=== PATIENT | male | born 1990 | race Two or more races ===

== ENCOUNTER 2018-08-11 18:53 | Emergency (ER) | payer MEDICAID, OTHER ==
[~2018-08-11] VITALS: Ht 175.3 cm; Wt 74.0 kg
[~2018-08-11 18:53] MED LIST: HYDR-569 PO; HYDR1TAB PO; IBUP-814 PO
[2018-08-11 19:14] VITALS: BP 123/71
== END 2018-08-11 21:00 | disposition left against medical advice (07) ==
LOC: ER 18:54
DX: K04.7 Periapical abscess without sinus (principal); K02.9 Dental caries, unspecified; F12.90 Cannabis use, unspecified, uncomplicated; Z56.0 Unemployment, unspecified; Z59.0 Homelessness
CPT/HCPCS: 99281

== ENCOUNTER 2025-04-01 23:09 | Emergency (ER) | payer MEDICAID ==
[~2025-04-01] VITALS: Ht 175.3 cm; Wt 84.1 kg
[~2025-04-01 23:09] MED LIST changes: +HYDR-4383 PO; -HYDR-569 PO
[2025-04-01 23:10] VITALS: TEMP 97.5
--- NOTE | 2025-04-02 02:33 | Physician Documentation ---
History of Present Illness ~ Chief Complaint: Back Pain Stated Complaint: LOWER BACK PAIN Time Seen by MD: 02:32 [facility]: Ambulatory HPI Patient presents to the emergency room with chronic back pain requesting muscle relaxers. He was mopping a floor four days ago and has experiencing pain since that time. He was requesting imaging and MRIs. No bladder or bowel incontinence reported Medication Reconciliation Allergies: Coded Allergies: No Known Allergies (Unverified , 08/11/18) Scheduled Hydrocodone/Acetaminophen (Vicodin 5-500 Tablet), 1-2 TAB PO Q6H PRN PAIN Ibuprofen (Motrin), 600 MG PO Q6H PRN FOR PAIN Scheduled PRN Hydrocodone/Acetaminophen ([place] 5-325 Tablet), 1 TAB PO TID PRN PRN for pain Past Medical History Past Medical History: Depression Past Surgical History: no surgical history Alcohol Use: Sober Drug Use: marijuana Lives In: Homeless Occupation: unemployed Review of Systems ROS All review of systems negative except as per HPI Physical Exam Physical Exam Vital Signs: Temperature: 97.5, Source: Temporal, Heart Rate: 71, Respiratory Rate: 14, BP: 117/74, Pulse Oximetry: 98, Weight: 84.100 Physical Exam General: Patient is awake, alert, talking on phone sitting comfortably eating a sandwich sitting up on bedside Head: Normocephalic and atraumatic. Eyes: Conjunctival normal. EOMI. PERRL. ENT: Mucous membranes moist. Neck: Supple, trachea is midline. Chest: Clear to auscultation bilaterally without rales, rhonchi, or wheezes. There is no accessory muscle use or retractions. Cardiac: RRR without murmurs, gallops, or rubs. Back: Diffuse bilateral lumbar tenderness to palpation without step-off Progress Results/Orders Results/Orders Vital Signs 04/01/25 23:10 Temp 97.5 Pulse 71 Resp 14 B/P (MAP) 117/74 Pulse Ox 98 Medical Decision Making Findings Patient presents to the emergency room for evaluation of back pain. Differentials include but are not limited to muscle strain kidney stone, radiculopathy, pyelonephritis, cauda equina. Given his history of hurting his back while mopping a floor I do not feel any emergent imaging is necessary as I do not suspect any fractures or neurologic emergencies. Offered ibuprofen and Tylenol for his pain however he was declining as he was states that they do not work. He is residing at [facility] and I will not be providing any addictive medicines for him. Patient was unhappy with plan of care and feels that we should do an MRI. After explaining why we would not be doing an MRI and why I would not be prescribing him addictive medications he asked for my name and started speaking of lawsuits. He then stood up become threatening therefore security was called to escort the patient out of the emergency room. Departure Disposition: 01 HOME / SELF CARE / HOMELESS Impression: Primary Impression: Lumbago Condition: Stable Discharge Instructions: Acute Back Pain, Adult Referrals: NO PRIMARY CARE PROVIDER (PCP) Education Educated: Patient Educated regarding: diagnosis, treatment, need for follow up Signature Scribe Signature: No scribe Attestation: The note accurately reflects work and decisions made by me.Doug Stanley MD 04/02/25 02:38 DOUG STANLEY MD April 02, 2025 02:33
[2025-04-02 03:02] VITALS: BP 122/74; PULSE 80; RESP 16; O2SAT 99
== END 2025-04-02 03:13 | disposition home or self-care (01) ==
LOC: ER 23:09
DX: M54.50 Low back pain, unspecified (principal)
CPT/HCPCS: 99281

== ENCOUNTER 2025-06-08 15:43 | Emergency (ER) | payer MEDICAID ==
[~2025-06-08] VITALS: Ht 172.7 cm; Wt 83.3 kg
[2025-06-08 16:01] VITALS: BP 128/80; PULSE 85; RESP 17; TEMP 98.1; O2SAT 98
[2025-06-08] MEDS ORDERED: AMOX-117 PO (16:24)
--- NOTE | 2025-06-08 16:24 | Physician Documentation ---
History of Present Illness ~ Chief Complaint: Bite-animal Stated Complaint: CAT BIT Time Seen by MD: 16:17 Primary Medical Doctor: [facility] Source: patient Mode of Arrival: POV Exam Limitations: no limitations HPI 34-year-old male in ER with complaint of swelling and pain possible infection from a cat bite to his left hand that he obtained by his own cat yesterday. Patient's CAT without signs of rabies indoor cat Tetanus within 5 years?: Yes (2019) Medication Reconciliation Allergies: Coded Allergies: No Known Allergies (Unverified , 08/11/18) Scheduled Hydrocodone/Acetaminophen (Vicodin 5-500 Tablet), 1-2 TAB PO Q6H PRN PAIN Ibuprofen (Motrin), 600 MG PO Q6H PRN FOR PAIN Scheduled PRN Hydrocodone/Acetaminophen ([place] 5-325 Tablet), 1 TAB PO TID PRN PRN for pain Past Medical History Past Medical History: No Pertinent History, Depression Past Surgical History: no surgical history Alcohol Use: Sober Drug Use: marijuana Lives In: Homeless Occupation: unemployed Review of Systems All Other Systems at this time: Reviewed and Negative Integumentary: Reports: see HPI Physical Exam Vital Signs: Temperature: 98.1, Source: Temporal, Heart Rate: 85, Respiratory Rate: 17, BP: 128/80, Pulse Oximetry: 98, Weight: 83.300 General Appearance: alert, WD/WN, no apparent distress Respiratory: normal breath sounds, no respiratory distress Chest: no accessory muscle use Skin Left hand puncture wounds to the medial aspect x2 with erythema swelling CMS intact distally no drainage Progress Results/Orders Results/Orders Vital Signs 06/08/25 16:01 Temp 98.1 Pulse 85 Resp 17 B/P (MAP) 128/80 Pulse Ox 98 Medical Decision Making Findings Erythema and swelling to the dorsum of the left hand with 2 puncture wounds from cat bite Augmentin started discussed follow up with primary care signs and symptoms to monitor for Departure Time of Disposition: 16:23 Disposition: 01 HOME / SELF CARE / HOMELESS Impression: Primary Impression: Cat bite Condition: Stable Discharge Instructions: Animal Bite, Adult Additional Instructions: Mature for any new or worsening symptoms and feel free to return to the ER. Take antibiotics as prescribed use warm compress a few times a day even warm water soak. Referrals: NO PRIMARY CARE PROVIDER (PCP) Prescriptions Amox Tr/Potassium Clavulanate (Augmentin 875-125 Tablet) 1 Each Tablet 1 TAB PO Q12H for 10 Days, #20 TAB Prov: STACY ALLEN NP 06/08/25 Education Educated: Patient Educated regarding: diagnosis, treatment, need for follow up Signature Scribe Signature: No scribe Attestation: The note accurately reflects work and decisions made by me.Stacy MORALES 06/08/25 16:24 STACY ALLEN NP Jun 08, 2025 16:24
[2025-06-08] MEDS: amox tr/potassium clavulanate 875/125mg TAB PO ONE (16:30)
== END 2025-06-08 16:31 | disposition home or self-care (01) ==
LOC: ER 15:43
DX: S61.432A Puncture wound without foreign body of left hand, initial encounter (principal); F32.A Depression, unspecified; F12.90 Cannabis use, unspecified, uncomplicated; Z59.00 Homelessness unspecified; Z56.0 Unemployment, unspecified; Z79.899 Other long term (current) drug therapy; W55.01XA Bitten by cat, initial encounter; Y93.89 Activity, other specified; Y92.89 Other specified places as the place of occurrence of the external cause; Y99.8 Other external cause status
CPT/HCPCS: 99283